=== PATIENT | male | born 1980 | race Caucasian/White ===

== ENCOUNTER 2024-04-11 17:37 | Emergency (ER) | payer OTHER ==
[~2024-04-11] VITALS: Ht 175.3 cm; Wt 95.5 kg
[2024-04-11 17:44] VITALS: BP 160/87; PULSE 67; RESP 18; TEMP 98.6; O2SAT 100
[2024-04-11 20:16] LABS: BASOPHILS % (AUTO) 0.6 % (0.0-2.0); EOSINOPHILS % (AUTO) 0.9 % (1.0-6.0); HEMATOCRIT 47.1 % (41-53); LYMPHOCYTES # (AUTO) 1.9 K/uL (1.0-4.8); LYMPHOCYTES % (AUTO) 33.1 % (22.0-44.0); MEAN CORPUSCULAR HEMOGLOBIN 29.8 pg (26.0-34.0); MEAN CORPUSCULAR VOLUME 88 fL (80-100); MONOCYTES # (AUTO) 0.6 K/uL (0.1-1.0); MONOCYTES % (AUTO) 10.6 % (2.0-9.0); NEUTROPHILS # (AUTO) 3.1 K/uL (1.8-7.7); NEUTROPHILS % (AUTO) 54.8 % (40.0-70.0); PLATELET COUNT (AUTO) 344 K/uL (150-450); RED BLOOD CELL COUNT(AUTO) 5.38 MIL/uL (4.50-5.90); RED CELL DISTRIBUTION WIDTH 13.1 % (11.5-14.5); WHITE BLOOD COUNT (AUTO) 5.7 K/uL (4.5-11.0)
[2024-04-11 20:24] LABS: ANION GAP 6 mmol/L (8-16); CARBON DIOXIDE 32 mmol/L (22-29); CHLORIDE 99 mmol/L (98-107); GLOMERULAR FILTR. RATE CALC > 60 mL/min (>60); GLUCOSE,RANDOM 91 mg/dL (70-110); POTASSIUM 4.6 mmol/L (3.5-5.1); SODIUM SERUM 137 mmol/L (136-145); UREA NITROGEN, BLOOD 10 mg/dL (7-18)
[2024-04-11] MEDS: IBUPROFEN 600 MG TABLET PO ONE (20:28)
[2024-04-11] MEDS: ACETAMINOPHEN 500 MG TABLET PO ONE (20:29)
[2024-04-11 20:50] LABS: CREATINE KINASE, TOTAL ONLY 292 U/L (39-308)
[2024-04-11] MEDS ORDERED: DIPH50CA37 PO (22:08)
[2024-04-11] MEDS ORDERED: IBUP-1554 PO (22:08)
[2024-04-11] MEDS ORDERED: ACET-66 PO (22:08)
[2024-04-11] MEDS ORDERED: AZIT250T9 PO (22:08)
[2024-04-11] MEDS ORDERED: HYDR30CR39 TP (22:08)
[2024-04-11] MEDS: CEPHALEXIN MONOHYDRATE 500 MG CAPSULE PO ONE (22:17)
[2024-04-11] MEDS: HYDROCORTISONE 1% 30 GM CREAM TP ONE (22:17)
== END 2024-04-11 22:24 | disposition home or self-care (01) ==
LOC: EMS 17:37
DX: R20.2 Paresthesia of skin (principal); L53.9 Erythematous condition, unspecified; R51.9 Headache, unspecified
CPT/HCPCS: 80048; 82550; 85025; 93005; 99284

== ENCOUNTER 2024-04-26 06:57 | Emergency (ER) | payer OTHER ==
[~2024-04-26] VITALS: Ht 175.3 cm; Wt 93.2 kg
[~2024-04-26 06:57] MED LIST: ACET-66 PO; DIPH50CA37 PO; HYDR30CR39 TP; IBUP-1554 PO
[2024-04-26 07:03] VITALS: TEMP 97.8
[2024-04-26] MEDS: ACETAMINOPHEN 500 MG TABLET PO ONE (07:42)
[2024-04-26] MEDS: MECLIZINE HCL 25 MG TABLET PO ONE (07:43)
[2024-04-26 08:20] LABS: APPEARANCE,URINE CLEAR (CLEAR); BILIRUBIN,URINE NEGATIVE (NEGATIVE); COLOR,URINE COLORLESS (YELLOW); GLUCOSE, URINE (UA) NEGATIVE (NEGATIVE); KETONES,URINE NEGATIVE (NEGATIVE); LEUKOCYTE ESTERASE ,URINE NEGATIVE (NEGATIVE); NITRATE,URINE NEGATIVE (NEGATIVE); OCCULT BLOOD,URINE NEGATIVE (NEGATIVE); PH,URINE 6.5 (5.0-8.0); PROTEIN,URINE NEGATIVE (NEGATIVE); SPECIFIC GRAVITIY, URINE 1.007 (1.003-1.030); UROBILINOGEN,URINE <=1.0 mg/dL (<=1.0)
[2024-04-26 08:55] LABS: BASOPHILS % (AUTO) 0.8 % (0.0-2.0); EOSINOPHILS % (AUTO) 0.6 % (1.0-6.0); HEMATOCRIT 45.8 % (41-53); HEMOGLOBIN 15.7 g/dL (13.5-17.5); LYMPHOCYTES # (AUTO) 1.6 K/uL (1.0-4.8); LYMPHOCYTES % (AUTO) 28.8 % (22.0-44.0); MEAN CORPUSCULAR HEMOGLOBIN 29.8 pg (26.0-34.0); MEAN CORPUSCULAR HGB CONC 34.3 G/dL (31.0-37.0); MEAN CORPUSCULAR VOLUME 87 fL (80-100); MONOCYTES # (AUTO) 0.5 K/uL (0.1-1.0); MONOCYTES % (AUTO) 9.1 % (2.0-9.0); NEUTROPHILS # (AUTO) 3.3 K/uL (1.8-7.7); NEUTROPHILS % (AUTO) 60.7 % (40.0-70.0); PLATELET COUNT (AUTO) 338 K/uL (150-450); RED BLOOD CELL COUNT(AUTO) 5.27 MIL/uL (4.50-5.90); WHITE BLOOD COUNT (AUTO) 5.4 K/uL (4.5-11.0)
[2024-04-26 09:02] LABS: ANION GAP 7 mmol/L (8-16); CALCIUM, TOTAL 8.6 mg/dL (8.8-10.5); CARBON DIOXIDE 29 mmol/L (22-29); CHLORIDE 100 mmol/L (98-107); CREATININE 1.02 mg/dL (0.60-1.30); GLOMERULAR FILTR. RATE CALC > 60 mL/min (>60); GLUCOSE,RANDOM 110 mg/dL (70-110); POTASSIUM 3.9 mmol/L (3.5-5.1); SODIUM SERUM 136 mmol/L (136-145); UREA NITROGEN, BLOOD 14 mg/dL (7-18)
[2024-04-26 09:14] LABS: TROPONIN I-HIGH SENSITIVITY 8 ng/L (<76)
[2024-04-26 09:29] LABS: ALANINE AMINOTRANSFERASE 39 U/L (12-78); ALKALINE PHOSPHATASE 79 U/L (46-116); ASPARTATE AMINOTRANSFERASE 26 U/L (15-37); BILIRUBIN,TOTAL 0.4 mg/dL (0.1-1.0); CREATINE KINASE, TOTAL ONLY 251 U/L (39-308); PHOSPHORUS 3.1 mg/dL (2.5-4.9); TOTAL PROTEIN, SERUM 7.3 g/dL (6.4-8.2)
[2024-04-26 09:30] LABS: B-TYPE NATRIURETIC PEPTIDE 10 pg/mL (0-100)
[2024-04-26] MEDS ORDERED: ACET-3385 PO (09:46)
[2024-04-26] MEDS ORDERED: MECL-302 PO (09:46)
[2024-04-26 10:36] VITALS: BP 155/100; PULSE 60; RESP 15; O2SAT 99
== END 2024-04-26 10:54 | disposition home or self-care (01) ==
LOC: EMS 07:04
DX: R42 Dizziness and giddiness (principal); R51.9 Headache, unspecified
CPT/HCPCS: 70450; 80048; 80076; 81003; 82550; 83735; 83880; 84100; 84484; 85025; 93005; 99284